=== PATIENT | female | born 1965 | race Caucasian/White ===

== ENCOUNTER 2016-03-01 06:38 | Day surgery (SDC) | payer MEDICAID ==
[2016-03-01] MEDS ORDERED: PROPOFOL 10 MG/ML VIAL IV ONE (14:00)
[2016-03-01] MEDS ORDERED: LIDOCAINE 2% MDV (20MG/ML) 20ML VIAL IV ONE (14:54)
--- NOTE | 2016-03-04 08:58 | Operative Note ---
DATE OF SURGERY: 03/01/2016 SURGEON: Altagracia Kirkland MD OPERATION: COLONOSCOPY. INDICATIONS: This is a 50-year-old female with history of average risk of colorectal cancer who presented for screening colonoscopy. POSTOPERATIVE DIAGNOSES: 1. Left-sided colonic diverticulosis. 2. Grade 1 internal hemorrhoids. ANESTHESIA: Sedation is per Anesthesia. Pulse oximetry was monitored throughout the procedure to maintain O2 saturation of 90% or greater. Supplemental oxygen was administered via nasal cannula. Cardiac and vital signs were monitored throughout the duration of the procedure, and they were stable. The procedure of colonoscopy and risks and benefits of the procedure, including the risk of bleeding and perforation, among others, were explained to the patient who voiced understanding and desired to have the procedure done. Physical examination was performed, and the patient was found stable for sedation. PROCEDURE: The patient was placed in the left lateral position. Sedation was initiated. A digital rectal exam was performed and showed some mild external hemorrhoids with no palpable rectal masses. An Olympus PCF-180AL colonoscope was then inserted into the rectum under direct visualization. It was advanced to the cecum without difficulty. The ileocecal valve and appendiceal orifice were identified and photographed. The colonic mucosa was carefully examined upon introduction of the colonoscope. There were scattered diverticula noted in the sigmoid and descending colon. There were no other lesions noted. The colonoscope was then withdrawn while carefully examining the colonic mucosal surfaces. No other lesions were noted. In the rectum, retroflexion was performed and grade 1 internal hemorrhoids were noted. The colonoscope was then withdrawn and the procedure was terminated. The patient tolerated the procedure well without any immediate complications. She remained with stable vital signs and was transferred to the recovery room. RECOMMENDATIONS: 1. She should be on a high-fiber diet. 2. She should have a repeat colonoscopy for screening in 10 years. Thank you for allowing me to participate in the care of your patient. Altagracia Kirkland MD CC: Dr. Andi ANSARI
== END 2016-03-01 08:41 | disposition home or self-care (01) ==
LOC: HOP 06:38
PROVIDERS: ATTEND Internal Medicine Gastroenterology
DX: Z12.11 Encounter for screening for malignant neoplasm of colon (principal); I10 Essential (primary) hypertension; K57.30 Diverticulosis of large intestine without perforation or abscess without bleeding; K64.0 First degree hemorrhoids

== ENCOUNTER 2019-03-22 08:23 | Day surgery (SDC) | payer MEDICAID ==
[~2019-03-22 08:23] MED LIST: ACETAMINOPHEN 1,000 MG/100 ML BTL IVPB ONE
[2019-03-22] MEDS ORDERED: KETOROLAC 30 MG/ML VIAL IVP ONE (08:24)
[2019-03-22] MEDS ORDERED: DEXAMETHASONE 4 MG/ML 1ML VIAL IVP ONE (08:24)
[2019-03-22] MEDS ORDERED: SEVOFLURANE 250 ML INH ONE (08:24)
[2019-03-22] MEDS ORDERED: ONDANSETRON HCL IV 4 MG/2 ML VIAL IVP ONE (08:24)
[2019-03-22] MEDS ORDERED: MIDAZOLAM HCL 2MG/2ML VIAL IV ONE (08:24)
[2019-03-22] MEDS ORDERED: PROPOFOL 10 MG/ML VIAL IV ONE (08:24)
[2019-03-22] MEDS ORDERED: LIDOCAINE 2% MDV (20MG/ML) 20ML VIAL IV ONE (08:24)
[2019-03-22] MEDS ORDERED: RINGERS SOLUTION,LACTATED 1,000 ML IV ONE (09:10)
[2019-03-22] MEDS ORDERED: BUPIVACAINE 0.25% W/EPI MPF 30ML VIAL SQ ONE (10:04)
--- NOTE | 2019-03-22 14:20 | Operative Note ---
DATE OF SURGERY: 03/22/2019 SURGEON: Newton Hall DO PREOPERATIVE DIAGNOSES: 1. Back mass measuring 1 cm into the subcu. 2. Left facial mass measuring 0.5 cm down to the subcu. POSTOPERATIVE DIAGNOSES: 1. Back mass measuring 1 cm into the subcu. 2. Left facial mass measuring 0.5 cm down to the subcu. OPERATION: 1. Excision of back mass. 2. Excision of left facial mass. PROCEDURE: The patient is a 53-year-old female who was brought to the operating room and placed in a supine position. Her right shoulder was bumped in the air. Local with IV sedation was given per department of anesthesia. Her back was prepped and draped in the usual fashion. The area around the mass was anesthetized with a total of 5 mL of 0.25% Sensorcaine with epinephrine. An elliptical incision was made. This was carried down to subcutaneous tissue with cautery. This mass was then passed off the field. This measured 1 cm into the subcu. This was closed with 3-0 nylon. Attention now turned to the left face where she had a 0.5 cm lesion lateral to her left eye. This area was anesthetized with a total of 2 mL of 0.25% Sensorcaine with epinephrine. An elliptical incision was made around this 5 mm mass. This was carried down to subcutaneous tissues and excised. This wound was then closed with 5-0 nylon in interrupted fashion. She was taken to the recovery room in stable condition. Final pathology pending. [facility]
== END 2019-03-22 11:11 | disposition home or self-care (01) ==
LOC: SUR 08:23
PROVIDERS: ATTEND Surgery
DX: R22.0 Localized swelling, mass and lump, head (principal); R22.2 Localized swelling, mass and lump, trunk; I10 Essential (primary) hypertension
CPT/HCPCS: 11401; 11442; 00300; J1885; J2405; J7120